=== PATIENT | male | born 2000 | race Caucasian/White ===

== ENCOUNTER 2024-01-15 11:28 | Emergency (ER) | payer MEDICAID, SELFPAY ==
[2024-01-15 11:29] VITALS: BMI 19.0
[2024-01-15 11:31] VITALS: BP 117/61; PULSE 77; RESP 19; TEMP 36.7; O2SAT 98
--- NOTE | 2024-01-15 11:40 | XR_ITS ---
Examination: Hand, right 3 views Technique: Hand AP, oblique, lateral 3 views Date and time of exam: January 15, 2024 1142 hours INDICATIONS: Crush injury to the hand today FINDINGS: Acute fractures ungual tuft tip distal phalanx fourth digit without significant displacement No dislocation IMPRESSION: Acute fractures ungual tuft tip distal phalanx fourth digit
--- NOTE | 2024-01-15 12:20 | EDNOTE_ITS ---
Upper Extremity Injury RME/HPI General Chief Complaint: Hand/Wrist Problems Stated Complaint: smashed rt fourth finger Time Seen by Provider: 01/15/24 11:31 Arrival date/time: 01/15/24 11:28 23-year-old male presents emergency department today stating that he accidentally injured his right hand fourth digit while at work today Limitations: no limitations Related Data Previous Rx's ?Medication ?Instructions ?Recorded ibuprofen 600 mg tablet 600 mg PO Q8HR #30 tabs 01/24/16 acetaminophen 500 mg tablet 500 mg PO Q6H PRN fever or pain 11/26/20 (Tylenol Extra Strength) #60 tabs albuterol sulfate 90 mcg/actuation 1 inh inhalation QID PRN shortness 11/26/20 aerosol inhaler (ProAir HFA) of breath or wheezing #6.7 grams ondansetron 4 mg disintegrating 4 mg PO Q8H PRN nausea and 11/26/20 tablet vomiting #10 tabs benzonatate 100 mg capsule 100 mg PO TID #14 caps 04/21/23 ibuprofen 600 mg tablet 600 mg PO Q6H #30 tabs 04/21/23 ondansetron 4 mg disintegrating 4 mg PO Q8H PRN nausea and 04/21/23 tablet vomiting #10 tabs cephalexin 500 mg capsule 500 mg PO BID 7 days #14 caps 01/15/24 hydrocodone 5 mg-acetaminophen 325 1 tab PO BID PRN pain #10 tabs 01/15/24 mg tablet ibuprofen 600 mg tablet 600 mg PO Q6H #30 tabs 01/15/24 Allergies Allergy/AdvReac Type Severity Reaction Status Date / Time No Known Allergies Allergy Verified 01/15/24 11:31 Review of Systems Review of Systems Systems Reviewed: All systems reviewed, normal except as documented Constitutional Constitutional: Reports system reviewed and no additional complaints, except as documented, Denies fever(s) and Denies headache(s) Eyes Eyes: Reports system reviewed and no additional complaints, except as documented and Denies blurry vision ENT Ears, Nose, Mouth, and Throat: Reports system reviewed and no additional complaints, except as documented, Denies headache(s), Denies nasal congestion and Denies nasal discharge Cardiovascular Cardiovascular: Reports system reviewed and no additional complaints, except as documented, Denies chest pain and Denies dyspnea Respiratory Respiratory: Reports system reviewed and no additional complaints, except as documented, Denies chest congestion, Denies cough and Denies dyspnea Gastrointestinal Gastrointestinal: Reports system reviewed and no additional complaints, except as documented and Denies abdominal pain Musculoskeletal Musculoskeletal: Reports system reviewed and no additional complaints, except as documented, Reports arthralgias (Pain right hand fourth digit), Denies deformity, Reports joint swelling, Denies numbness, Reports stiffness and Denies tingling Integumentary/Breasts Skin/Breast: Reports system reviewed and no additional complaints, except as d ocumented and Denies rash Neurologic Neurologic: Reports system reviewed and no additional complaints, except as documented, Reports as per HPI, Denies headache(s), Denies numbness and Denies tingling Past Medical History Past Medical History CARDIAC: Negative Congestive Heart Failure RESPIRATORY: Negative Chronic Obstructive Pulmonary Disease (COPD) GENITOURINARY: Negative Renal Disease ENDOCRINE: Negative Diabetes Mellitus Type 1 or Diabetes Mellitus Type 2 Social History SMOKING STATUS: Current every day smoker ED Exam General Limitations: Present no limitations General appearance: Present alert and in no apparent distress Head Head exam: Present atraumatic Eye Eye exam: Present normal appearance, PERRL and EOMI ENT ENT exam: Present normal exam, normal oropharynx and mucous membranes moist Neck Neck exam: Present normal inspection, full ROM and trachea midline Chest Chest inspection: Present normal inspection and symmetric chest wall rise Respiratory Respiratory exam: Present normal lung sounds bilaterally Cardiovascular Cardiovascular exam: Present regular rate, normal rhythm and normal heart sounds Abdominal Exam Abdominal exam: Present soft and normal bowel sounds Extremities Exam Extremities exam: Present full ROM, tenderness (Pain right hand fourth digit), normal capillary refill and joint swelling Back Exam Back exam: Present normal inspection and full ROM Neurological Exam Neurological exam: Present alert, oriented X3 and CN II-XII intact Psychiatric Psychiatric exam: Present normal affect and normal mood Skin Skin exam: Present warm, dry, intact and normal color Course Quality Measures none Orders Category Date Time Status Splint / Immobilizer STAT Care 01/15/24 12:20 Completed Wound Care NOW Care 01/15/24 12:21 Completed XR hand comp RT min 3V Stat Exams 01/15/24 11:40 Completed HYDROcodone*/APAP 5/325 [Omega 5/325] Med 01/15/24 12:20 Discontinued 1 tab PO X1 ONE Ibuprofen Tab [Motrin Tab] Med 01/15/24 12:20 Discontinued 600 mg PO X1 ONE Tet,Diphth,Pertuss(Acell)-Tdap [Boostrix Vacc] Med 01/15/24 12:20 Discontinued 0.5 ml IMI .ONCE ONE Vital Signs Vital signs: Vital Signs Temperature 98.1 F 01/15/24 11:31 Pulse Rate 77 01/15/24 11:31 Respiratory Rate 19 01/15/24 11:31 Blood Pressure 117/61 01/15/24 11:31 Pulse Oximetry (%) 98 01/15/24 11:31 Oxygen Delivery Method Room Air 01/15/24 11:31 O2 saturation 98% room air within normal limits Procedures -ED Splint Fabrication: Clinician Made Type: Finger Protector Reason for Splint: Optimal Positioning and Pain Management Site condition: Pain Circulation Distal to Splint: Yes Movement Distal to Splint: Yes Senation Distal to Splint: Yes Tolerance: Tolerates Well Extremity Injury MDM Narrative MDM Narrative:: 23-year-old male presents emergency department today stating that he accidentally injured his right hand fourth digit while at work today On exam patient superficial laceration/abrasion to the right hand fourth digit Wound irrigated copiously the nail appears intact at this point cuticle intact X-ray of right hand obtained patient is fracture distal aspect of right fourth digit Patient reports he does not want to file Workmen's Compensation claim Patient tetanus updated patient given pain medication Patient placed in splint Patient discharged home in no distress to follow-up with primary care doctor in the next 24 to 48 hours and for any worsening symptoms to return to the ER immediately Patient data External records reviewed:: [facility] previous records Clinical information provided by:: patient Social determinants that could affect healthcare access:: none Patient has the following chronic illnesses:: None How is presenting disease/condition affected by chronic disease/condition?: no chronic disease Evaluation data The following diagnostics were reviewed and interpreted by me:: radiology exam(s) Lab and/or radiology exams considered but not ordered:: Radiology obtained Interpretation Summary: Reviewed by me Medications / Prescriptions Medications or Prescriptions considered but not ordered:: Given Medication administrations:: Medication Administration History Discontinued Medications Hydrocodone Bitart/Acetaminophen (Hydrocodone/Apap 5/325 Tablet) 1 tab PO X1 ONE Stop: 01/15/24 12:21 Last Admin: 01/15/24 12:50 Dose: 1 tab Documented By: ARF Diphtheria/Tetanus/Acell Pertussis (Diphth,Pertuss(Acell),Tet Vac 0.5 Ml Vial) 0.5 ml IMi .ONCE ONE Stop: 01/15/24 12:21 Last Admin: 01/15/24 12:50 Dose: 0.5 ml Documented By: YESI Ibuprofen (Ibuprofen Tab 600 Mg Tablet) 600 mg PO X1 ONE Stop: 01/15/24 12:21 Last Admin: 01/15/24 12:50 Dose: 600 mg Documented By: ARF Given Consultations Consultation(s) initiated? (list below): No Diagnosis Upper Extremity Injury Differential Diagnosis: dislocation of finger, fracture of hand and other (Finger fracture) Most likely diagnosis given after review of the tests above:: Finger fracture Admission Indicated Admission indicated?: not indicated Admission Request Was there a request for admission?: No Disposition Plan Disposition Plan: Discharge Discharge Attestation Discharge Attestation: The patient and all family members were given an opportunity to ask questions and understood the discharge instructions. Discharge instructions specifically effects, indications for sooner follow up or return to the emergency department, and the expected course of current diagnosis. Patient condition: Stable Discharge Plan Plan Patient Disposition: HOME (Self Care) Disposition Comment: Stable Prescriptions/Referrals Prescriptions/Med Rec: New hydrocodone-acetaminophen 5-325 mg tablet 1 tab PO BID MDD 10 PRN (Reason: pain) Qty: 10 0RF ibuprofen 600 mg tablet 600 mg PO Q6H Qty: 30 0RF cephalexin 500 mg capsule 500 mg PO BID 7 Days Qty: 14 0RF No Action ibuprofen 600 MG tablet 600 mg PO Q8HR Qty: 30 0RF ondansetron 4 mg tablet,disintegrating 4 mg PO Q8H PRN (Reason: nausea and vomiting) Qty: 10 0RF albuterol sulfate [ProAir HFA] 90 mcg/actuation HFA aerosol inhaler 1 inh inhalation QID PRN (Reason: shortness of breath or wheezing) Qty: 6.7 0RF acetaminophen [Tylenol Extra Strength] 500 mg tablet 500 mg PO Q6H PRN (Reason: fever or pain) Qty: 60 0RF benzonatate 100 mg capsule 100 mg PO TID Qty: 14 0RF ibuprofen 600 mg tablet 600 mg PO Q6H Qty: 30 0RF ondansetron 4 mg tablet,disintegrating 4 mg PO Q8H PRN (Reason: nausea and vomiting) Qty: 10 0RF Referrals: No Primary/Family,Physician [Primary Care Provider] - 01/16/24 Problem List Clinical Impression: Fracture of finger of right hand Patient/Caregiver Discharge Instructions Education Materials: [facility] [employer] [facility] Additional Instructions: Please follow up with your primary care doctor in the next 24-48hrs for any worsening symptoms return here immediately Print Language: Welsh Stand Alone Forms: Tasha Award Info., Patient Portal Info Letter Vaccines Vaccines Given During Stay: TDaP 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
[2024-01-15] MEDS: IBUPROFEN TAB 600 MG TABLET PO (12:50)
[2024-01-15] MEDS: HYDROcodone/APAP 5/325 TABLET 1 TAB PO (12:50)
[2024-01-15] MEDS: DIPHTH,PERTUSS(ACELL),TET VAC 0.5 ML VIAL IMi (12:50)
== END 2024-01-15 13:16 | disposition home or self-care (01) ==
PROVIDERS: Emergency Provider Emergency Medicine
DX: S62.664A Nondisplaced fracture of distal phalanx of right ring finger, initial encounter for closed fracture (principal); X58.XXXA Exposure to other specified factors, initial encounter; Y99.0 Civilian activity done for income or pay; Z23 Encounter for immunization
CPT/HCPCS: 73130; 90471; 90715; 99283; A9270